=== PATIENT | male | born 1965 | race Caucasian/White ===

== ENCOUNTER → 2017-06-23 | Outpatient (CLI) | payer BC ==
--- NOTE | 2017-06-23 21:09 | MRI ---
EXAM DESCRIPTION: Cervical Spine CLINICAL HISTORY: RADICULOPATHY COMPARISON: None Available. TECHNIQUE: Multiplanar multisequence MR imaging of the cervical spine including the administration of intravenous contrast. FINDINGS: There are postoperative changes of the mid cervical spine. Prevertebral soft tissues are normal in volume and signal. There is mild central canal narrowing at C2-3 and C3-4. At C2-3, this is due to combination of mild posterior disc bulge and mild enlargement of the posterior elements. At C3-4 it is due to mild posterior disc bulge. At C3-4 there is moderate right and moderately severe left neural foraminal narrowing. At C4-5 there is mild left neural foraminal narrowing. At C6-7 there is moderately severe bilateral neural foraminal narrowing. No other significant stenosis. IMPRESSION: Stenoses as above. Electronically signed by: Kamaljit Figueroa 06/23/2017 9:07 PM [facility]
== END | disposition home or self-care (01) ==
LOC: MRI 15:00
PROVIDERS: ATTEND Physical Medicine & Rehabilitation
DX: M48.02 Spinal stenosis, cervical region (principal)

== ENCOUNTER → 2018-10-15 | Outpatient (CLI) | payer BC | LOC: GMAE 11:57 | PROVIDERS: ATTEND Family Medicine | DX: E29.9 Testicular dysfunction, unspecified (principal); R94.8 Abnormal results of function studies of other organs and systems ==

== ENCOUNTER 2020-01-22 05:55 | Day surgery (SDC) | payer BC ==
[2020-01-22] MEDS ORDERED: LACTATED RINGERS 1,000 ML ONE (06:36)
[2020-01-22] MEDS ORDERED: LIDOCAINE 1% 10 ML VIAL INJ ONE (07:00)
[2020-01-22] MEDS ORDERED: PROPOFOL 200 MG/20 ML VIAL IV ONE (07:00)
[2020-01-22] MEDS ORDERED: LACTATED RINGERS 1,000 ML IVS ONE (07:20)
--- NOTE | 2020-01-22 09:38 | OP ---
DATE OF PROCEDURE: 01/22/20 PREOPERATIVE DIAGNOSIS: 1. Personal history of polyps, last colonoscopy was 2011. POSTOPERATIVE DIAGNOSIS: 1. Colonic polyps. 2. Diverticulosis. PROCEDURE: 1. Colonoscopy plus polypectomy. SURGEON: Rayshawn Hutton MD. COMPLICATIONS: None. BLOOD LOSS: None. MEDICATIONS: Monitored anesthesia care. DESCRIPTION OF PROCEDURE: Informed consent was obtained prior to sedation. The preprocedure cardiopulmonary assessment was satisfactory. The patient was placed in the left lateral decubitus position and was sedated. A digital rectal exam was unremarkable. No issues with his prostate and no rectal masses were identified. The tip of the Olympus colonoscope was inserted in the rectum and guided over to the cecum. The cecum was identified by locating the ileocecal valve and appendiceal orifice. Retroflexed view of the right colon was obtained. The patient had 4 polyps in the colon. There were 2 polyps in the sigmoid that were about 3 mm in size. There was one polyp in the cecum that was about 3 mm in size. These 3 sessile polyps were all removed with a cold snare. There was a fourth polyp that was about 5 mm in size in the descending colon. This sessile polyp was removed with a hot snare and suctioned to be recovered. The patient has sigmoid diverticulosis. Otherwise, the colonoscopy was unremarkable. RECOMMENDATIONS: Followup polyp pathology, but from the visual appearance of the polyps, I suspect he will need a followup colonoscopy in 3 years. #[id number] cc: Yashira Quinn MD [facility]ITALJayme
[2020-01-22 10:03] VITALS: BP 142/86; TEMP 96.3; O2SAT 96
== END 2020-01-22 09:40 | disposition home or self-care (01) ==
LOC: AMB 05:55
PROVIDERS: ATTEND Internal Medicine Gastroenterology
DX: Z12.11 Encounter for screening for malignant neoplasm of colon (principal); D12.0 Benign neoplasm of cecum; D12.4 Benign neoplasm of descending colon; D12.5 Benign neoplasm of sigmoid colon; K63.5 Polyp of colon; K57.30 Diverticulosis of large intestine without perforation or abscess without bleeding; G89.29 Other chronic pain; Z79.890 Hormone replacement therapy; Z79.899 Other long term (current) drug therapy; Z79.82 Long term (current) use of aspirin; Z86.010 Personal history of colon polyps
CPT/HCPCS: 00812; 45385; J3490; J7120

== ENCOUNTER → 2020-05-12 | Outpatient (CLI) | payer BC, OTHER ==
--- NOTE | 2020-05-14 08:35 | CT ---
Procedure: CT LUNG SCREENING Exam Date: April 12, 2020. Ordering Provider: Duarte Palomino Clinical Indication: PERSONAL HISTORY OF TOBACCO DEPENDENCE . Smoking cessation x6 years. 20 pack years smoking history. This patient meets eligibility criteria for low-dose CT lung cancer screening. Comparison: Baseline low-dose CT lung cancer screening examination. Technique: Using a multislice scanner, sequential helical axial imaging was obtained in the thorax, 2.5 mm thickness, 2.5 mm separation, from the level of the thoracic inlet through the lung bases without IV contrast. A low dose protocol was utilized. CTDI: 1.76 mGy. 120. kVp. 45 mA. DLP 61 mGy-cm. 2D sagittal and coronal reconstructed images, 6.0 mm thickness, were obtained. This exam was performed according to our departmental dose optimization program which includes use of automated exposure control, adjustment of the mA and/or kV according to patient size and/or use of iterative reconstruction technique. Nodule measurements under 10 mm are given as mean value of 3 axes diameters. FINDINGS: Lungs and large airways: Left apical pleural-parenchymal scarring. 1 mm subpleural nodule lateral left lower lobe. Minimal bilateral parenchymal blebs in the upper lung moore in a centrilobular distribution. Pleural-parenchymal scarring inferior medial right middle lobe. No abnormal nodules and no masses. No acute infiltrate. Pleura and space: No acute process. Mediastinum and luciana: evaluation limited by low dose technique and lack of IV contrast. No enlarged lymph nodes or dominant soft tissue mass. Heart and great vessels: Dominant calcification left main and LAD coronary arteries and proximal right coronary artery. Chest wall, lower neck, axillae: Evaluation also limited by same factors as described above. Negative. Upper abdomen: Evaluation limited by low-dose technique. No free air or free fluid. Osseous structures: Evaluation limited by low dose MIP technique. 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 IMPRESSION: Minimal emphysematous changes, centrilobular type. No abnormal nodules and no mass. No acute infiltrate.. [facility] Best Practice Recommendations: please see below for Lung RADS category and FOLLOW-UP.* *Lung RADS category Category 1S - No nodule or definitely benign nodules (probability of malignancy less than 1%). Follow-up: Continue annual screening with Low Dose Chest CT in 12 months. 2. Lung RADS Modifier S - Clinically Significant or Potentially Clinically Significant Findings (non lung cancer): Coronary artery calcification. Electronically signed by: Kamaljit Mccall MD 05/14/2020 8:33 AM CDT
== END ==
LOC: CT 15:30
PROVIDERS: ATTEND Family Medicine
DX: Z12.2 Encounter for screening for malignant neoplasm of respiratory organs (principal); J98.4 Other disorders of lung; R91.1 Solitary pulmonary nodule; Z87.891 Personal history of nicotine dependence